=== PATIENT | female | born 1940 | race Caucasian/White ===

== ENCOUNTER 2016-05-03 10:23 | Day surgery (SDC) | payer OTHER, MEDICARE ==
[~2016-05-03] VITALS: Ht 157.5 cm; Wt 77.1 kg
[~2016-05-03 10:23] MED LIST: ADVAIR HFA120 INHAL2 IH; Advair HFA 45/21 IH; CALCIUM + VITA1 EACH PO; CALCIUM 600 +1 EAC2 PO; CELEXA20 MG PO; CENTRUM SILVER1 EAC3 PO; CRESTOR40 MG PO; CYMBALTA30 MG PO; Ceftin PO; EVISTA60 MG PO; Evista PO; FOLIC ACID1 MG PO; GABAPENTIN400 MG PO; GLUCOPHAGE500 MG PO; GLUCOSAMINE &1 EAC1 PO; LIPITOR20 MG PO; LO-DOSE ASPIRIN81 M2 PO; MAGNESIUM500 MG PO; METFORMIN HCL500 MG PO; MILLTRIUM SENI1 EACH PO; Medrol Dosepak PO; NASACORT AQ16.5 GM NS; NEURONTIN300 MG PO; NORCO 5/3251 TABLET PO; Neurontin PO; OMEPRAZOLE40 M1 PO; Proventil,Ventolin H IH; SINGULAIR10 MG PO; SYMBICORT60 INHALAT IH; SYSTANE LIQUID15 ML BOTH EYES; Systane 0.3-0.4% Eye BOTH EYES; TEMOVATE 0.05%60 GM TP; TRAMADOL HCL50 MG PO; Ultram PO; VENTOLIN HFA18 GM IH; VITAMIN C1000 MG PO; ZYRTEC10 M2 PO
[2016-05-03 11:14] LABS: POINT-OF-CARE METER ID UU14174212
== END 2016-05-03 12:38 | disposition home or self-care (01) ==
LOC: PAIN 10:23 → SDC 11:00 → PAIN 11:00
PROVIDERS: Anesthesiology Pain Medicine
PROC: 015B3ZZ Destruction of Lumbar Nerve, Percutaneous Approach (ICD-10-PCS; principal; 2016-05-03)
DX: M47.816 Spondylosis without myelopathy or radiculopathy, lumbar region (principal); M54.5 Low back pain; F41.9 Anxiety disorder, unspecified; G89.29 Other chronic pain; M50.30 Other cervical disc degeneration, unspecified cervical region; M81.0 Age-related osteoporosis without current pathological fracture; E11.40 Type 2 diabetes mellitus with diabetic neuropathy, unspecified; E78.5 Hyperlipidemia, unspecified; M06.9 Rheumatoid arthritis, unspecified; Z79.82 Long term (current) use of aspirin; E66.3 Overweight; Z68.30 Body mass index [BMI] 30.0-30.9, adult; Z87.891 Personal history of nicotine dependence; Z88.8 Allergy status to other drugs, medicaments and biological substances
CPT/HCPCS: 82948; J1030; J3010; S0020

== ENCOUNTER 2016-05-10 10:51 | Day surgery (SDC) | payer OTHER, MEDICARE ==
[~2016-05-10] VITALS: Ht 157.5 cm; Wt 77.1 kg
[2016-05-10 11:30] LABS: POINT-OF-CARE METER ID UU14174212
[2016-05-10 11:59] LABS: POINT-OF-CARE METER ID UU14174212
== END 2016-05-10 13:00 | disposition home or self-care (01) ==
LOC: PAIN 10:51 → SDC 11:30 → PAIN 13:00
PROVIDERS: Anesthesiology Pain Medicine
PROC: 015B3ZZ Destruction of Lumbar Nerve, Percutaneous Approach (ICD-10-PCS; principal; 2016-05-10)
DX: M47.896 Other spondylosis, lumbar region (principal); M54.5 Low back pain; F41.1 Generalized anxiety disorder; J44.9 Chronic obstructive pulmonary disease, unspecified; K21.9 Gastro-esophageal reflux disease without esophagitis; M50.30 Other cervical disc degeneration, unspecified cervical region; M81.0 Age-related osteoporosis without current pathological fracture; R73.9 Hyperglycemia, unspecified
CPT/HCPCS: 82948; J1030; J3010; S0020

== ENCOUNTER 2016-07-31 07:56 | Day surgery (SDC) | payer OTHER, MEDICARE ==
[~2016-07-31] VITALS: Ht 157.5 cm; Wt 79.4 kg
[~2016-07-31 07:56] MED LIST changes: +ADVAIR 250/501 DISK IH; +MIRALAX255 GM PO; +NASACORT10.8 ML BOTH NARES; +ZANAFLEX2 M1 PO
[2016-07-31 08:42] LABS: POINT-OF-CARE METER ID UU14174212
== END 2016-07-31 09:40 | disposition home or self-care (01) ==
LOC: PAIN 07:56 → SDC 08:45 → PAIN 09:40
PROVIDERS: Anesthesiology Pain Medicine
PROC: 01513ZZ Destruction of Cervical Nerve, Percutaneous Approach (ICD-10-PCS; principal; 2016-07-31)
DX: M47.812 Spondylosis without myelopathy or radiculopathy, cervical region (principal); F41.9 Anxiety disorder, unspecified; G89.29 Other chronic pain; M47.816 Spondylosis without myelopathy or radiculopathy, lumbar region; M50.30 Other cervical disc degeneration, unspecified cervical region; M62.838 Other muscle spasm; Z79.82 Long term (current) use of aspirin; E11.40 Type 2 diabetes mellitus with diabetic neuropathy, unspecified; M06.9 Rheumatoid arthritis, unspecified; E78.5 Hyperlipidemia, unspecified; Z88.8 Allergy status to other drugs, medicaments and biological substances
CPT/HCPCS: 82948; 93005; J1030; J2250; J3010; S0020

== ENCOUNTER 2016-08-07 08:25 | Day surgery (SDC) | payer OTHER, MEDICARE ==
[~2016-08-07] VITALS: Ht 157.5 cm; Wt 79.4 kg
[2016-08-07 09:39] LABS: POINT-OF-CARE METER ID UU14174212
== END 2016-08-07 10:32 | disposition home or self-care (01) ==
LOC: PAIN 08:25 → SDC 09:15 → PAIN 10:32
PROVIDERS: Anesthesiology Pain Medicine
DX: G89.29 Other chronic pain (principal); M47.812 Spondylosis without myelopathy or radiculopathy, cervical region; M50.30 Other cervical disc degeneration, unspecified cervical region; M62.838 Other muscle spasm; M47.816 Spondylosis without myelopathy or radiculopathy, lumbar region; E11.40 Type 2 diabetes mellitus with diabetic neuropathy, unspecified; E78.5 Hyperlipidemia, unspecified; I44.0 Atrioventricular block, first degree; J44.9 Chronic obstructive pulmonary disease, unspecified; J45.909 Unspecified asthma, uncomplicated; K21.9 Gastro-esophageal reflux disease without esophagitis; Z79.82 Long term (current) use of aspirin; Z79.84 Long term (current) use of oral hypoglycemic drugs; Z79.899 Other long term (current) drug therapy; Z79.891 Long term (current) use of opiate analgesic; Z87.891 Personal history of nicotine dependence; E66.9 Obesity, unspecified; Z68.32 Body mass index [BMI] 32.0-32.9, adult
CPT/HCPCS: 82948; J1030; J3010; S0020

== ENCOUNTER 2017-02-25 12:46 | Day surgery (SDC) | payer OTHER, MEDICARE ==
[~2017-02-25] VITALS: Ht 154.9 cm; Wt 79.4 kg
[2017-02-25 13:41] LABS: POINT-OF-CARE METER ID UU14174212; POINT-OF-CARE USER ID AHSRSCSLC11
== END 2017-02-25 15:41 | disposition home or self-care (01) ==
LOC: PAIN 12:46 → SDC 14:00 → PAIN 14:00
PROVIDERS: Anesthesiology Pain Medicine
DX: M47.26 Other spondylosis with radiculopathy, lumbar region (principal); M51.16 Intervertebral disc disorders with radiculopathy, lumbar region; M54.5 Low back pain; G89.29 Other chronic pain; E11.40 Type 2 diabetes mellitus with diabetic neuropathy, unspecified; E78.5 Hyperlipidemia, unspecified; M50.30 Other cervical disc degeneration, unspecified cervical region; J44.9 Chronic obstructive pulmonary disease, unspecified; K21.9 Gastro-esophageal reflux disease without esophagitis; E66.3 Overweight; Z68.33 Body mass index [BMI] 33.0-33.9, adult; Z79.84 Long term (current) use of oral hypoglycemic drugs; Z79.82 Long term (current) use of aspirin; Z87.891 Personal history of nicotine dependence
CPT/HCPCS: 82948; J1030; J2250; J3010; S0020

== ENCOUNTER 2017-03-04 12:48 | Day surgery (SDC) | payer OTHER, MEDICARE ==
[~2017-03-04] VITALS: Ht 157.5 cm; Wt 78.9 kg
[2017-03-04 13:45] LABS: POINT-OF-CARE METER ID UU14174212
== END 2017-03-04 15:12 | disposition home or self-care (01) ==
LOC: PAIN 12:48 → SDC 13:30 → PAIN 13:30
PROVIDERS: Anesthesiology Pain Medicine
PROC: 015B3ZZ Destruction of Lumbar Nerve, Percutaneous Approach (ICD-10-PCS; principal; 2017-03-04)
DX: M47.816 Spondylosis without myelopathy or radiculopathy, lumbar region (principal); G89.29 Other chronic pain; M50.30 Other cervical disc degeneration, unspecified cervical region; E11.40 Type 2 diabetes mellitus with diabetic neuropathy, unspecified; J44.9 Chronic obstructive pulmonary disease, unspecified; E78.5 Hyperlipidemia, unspecified; K21.9 Gastro-esophageal reflux disease without esophagitis; Z87.891 Personal history of nicotine dependence; Z79.82 Long term (current) use of aspirin; Z88.8 Allergy status to other drugs, medicaments and biological substances
CPT/HCPCS: 82948; J1030; J2250; J3010; S0020

== ENCOUNTER 2017-05-16 07:40 | Day surgery (SDC) | payer OTHER, MEDICARE ==
[~2017-05-16] VITALS: Ht 157.5 cm; Wt 78.9 kg
[2017-05-21] MEDS ORDERED: ZANTAC150 MG PO (12:01)
[2017-05-21] MEDS ORDERED: PROVENTIL,2.5 MG/3 M IH (12:02)
== END 2017-05-16 09:09 | disposition home or self-care (01) ==
LOC: PAIN 07:40 → SDC 08:30 → PAIN 08:30
PROVIDERS: Anesthesiology Pain Medicine
PROC: BR141ZZ Fluoroscopy of Cervical Facet Joint(s) using Low Osmolar Contrast (ICD-10-PCS; principal; 2017-05-16)
PROC: 3E0T3TZ Introduction of Destructive Agent into Peripheral Nerves and Plexi, Percutaneous Approach (ICD-10-PCS; principal; 2017-05-16)
DX: M47.812 Spondylosis without myelopathy or radiculopathy, cervical region (principal); M54.2 Cervicalgia; G89.29 Other chronic pain; M47.816 Spondylosis without myelopathy or radiculopathy, lumbar region; E11.40 Type 2 diabetes mellitus with diabetic neuropathy, unspecified; K21.9 Gastro-esophageal reflux disease without esophagitis; M35.3 Polymyalgia rheumatica; Z87.891 Personal history of nicotine dependence; I10 Essential (primary) hypertension; J44.9 Chronic obstructive pulmonary disease, unspecified; Z79.82 Long term (current) use of aspirin; Z79.84 Long term (current) use of oral hypoglycemic drugs; Z79.891 Long term (current) use of opiate analgesic; F41.9 Anxiety disorder, unspecified
CPT/HCPCS: 82948; J1030; J2250; J3010; S0020

== ENCOUNTER 2017-05-23 07:46 | Day surgery (SDC) | payer OTHER, MEDICARE ==
[~2017-05-23] VITALS: Ht 157.5 cm; Wt 78.9 kg
[~2017-05-23 07:46] MED LIST changes: +PROVENTIL,2.5 MG/3 M IH; +ZANTAC150 MG PO
== END 2017-05-23 09:45 | disposition home or self-care (01) ==
LOC: PAIN 07:46 → SDC 08:45 → PAIN 09:45
PROVIDERS: Anesthesiology Pain Medicine
DX: M47.812 Spondylosis without myelopathy or radiculopathy, cervical region (principal); M50.31 Other cervical disc degeneration, high cervical region; M46.92 Unspecified inflammatory spondylopathy, cervical region; M47.816 Spondylosis without myelopathy or radiculopathy, lumbar region; J44.9 Chronic obstructive pulmonary disease, unspecified; K21.9 Gastro-esophageal reflux disease without esophagitis; E11.40 Type 2 diabetes mellitus with diabetic neuropathy, unspecified; G89.29 Other chronic pain; E78.5 Hyperlipidemia, unspecified; Z79.84 Long term (current) use of oral hypoglycemic drugs; Z79.82 Long term (current) use of aspirin; Z79.891 Long term (current) use of opiate analgesic; Z87.891 Personal history of nicotine dependence
CPT/HCPCS: 82948; 93005; J1030; J1885; J3010; S0020